=== PATIENT | male | born 1935 | race Caucasian/White ===

== ENCOUNTER → 2020-01-10 10:56 | Outpatient (BNVA) | payer MEDICARE, OTHER, SELFPAY | PROVIDERS: PCP Internal Medicine; Referring Provider Internal Medicine; Visit Provider Internal Medicine Cardiovascular Disease | DX: I48.92 Unspecified atrial flutter (principal); I10 Essential (primary) hypertension; E78.5 Hyperlipidemia, unspecified; Z79.899 Other long term (current) drug therapy; Z79.01 Long term (current) use of anticoagulants; Z95.0 Presence of cardiac pacemaker | CPT/HCPCS: 93005; 99213 ==

== ENCOUNTER 2020-05-26 09:46 | Outpatient (REF) | payer MEDICARE, OTHER, SELFPAY ==
[2020-05-26 11:02] LABS: MANUAL DIFF FLAG NO
[2020-05-26 11:13] LABS: Basophils Percent Auto 0.3 % (0-2); Eosinophils Absolute Auto 0.2 X10*3/uL (0.0-0.4); Eosinophils Percent Auto 2.2 % (0-4); Hematocrit 40.3 % (42-52); Hemoglobin 13.4 g/dl (14.0-18.0); Imm Gran Abs Auto 0.07 X10*3/uL (0.00-0.03); Imm Gran Pct Auto 0.7 % (0.0-0.4); Lymphocytes Absolute Auto 1.7 X10*3/uL (1.2-4.9); Lymphocytes Percent Auto 18.3 % (20-40); Mean Corpuscular HGB Conc 33.3 g/dl (31.0-36.0); Mean Corpuscular Hemoglobin 29.1 pg (27.0-33.0); Mean Corpuscular Volume 87.4 fL (80-98); Mean Platelet Volume 10.7 fL (9.4-12.4); Monocytes Absolute Auto 0.4 X10*3/uL (0.1-1.2); Monocytes Percent Auto 4.7 % (2-11); Neutrophils Absolute Auto 6.9 X10*3/uL (2.0-8.3); Neutrophils Percent Auto 73.8 % (45-73); Platelet Count 228 X10*3/uL (160-400); Red Blood Count 4.61 X10*6/uL (4.60-5.80); Red Cell Distribution Width 14.3 % (11.0-16.0); White Blood Count 9.4 X10*3/uL (4.8-10.8)
[2020-05-26 11:41] LABS: Microalbum/Creatinine Ratio Ur 19.4 ug/mg cr
[2020-05-26 11:45] LABS: Estimated Average Glucose 192 mg/dL; Hemoglobin A1c % 8.3 %
[2020-05-26 11:52] LABS: Alanine Aminotransferase 34 U/L (0-40); Albumin Level 4.5 g/dL (3.5-5.0); Alkaline Phosphatase 116 U/L (39-117); Anion Gap 16 (12-20); Aspartate Amino Transferase 36 U/L (5-37); Bilirubin Total 0.8 mg/dL (0.0-1.0); Blood Urea Nitrogen 22 mg/dL (9-16); Calcium 9.3 mg/dL (8.4-10.2); Carbon Dioxide 29 mmol/L (22-29); Chloride 100 mmol/L (96-108); Cholesterol 171 mg/dL; Estimated Glomerular Filt Rate 41; Free T4 (Free Thyroxine) 0.99 ng/dL (0.71-1.85); Glucose Fasting 202 mg/dL (60-99); HDL Cholesterol 50 mg/dL; LDL Cholesterol Calculated 93 mg/dl; Potassium 4.5 mmol/L (3.3-5.1); Sodium 140 mmol/L (135-145); Thyroid Stimulating Hormone 6.89 uIU/mL (0.32-4.0); Total Protein 7.3 g/dL (6.5-8.0); Triglycerides 143 mg/dL
== END 2020-05-26 09:47 | disposition home or self-care (01) ==
LOC: HO.HMGCLDS 09:46
PROVIDERS: PCP Internal Medicine; Visit Provider Internal Medicine
DX: E11.22 Type 2 diabetes mellitus with diabetic chronic kidney disease (principal); I12.9 Hypertensive chronic kidney disease with stage 1 through stage 4 chronic kidney disease, or unspecified chronic kidney disease; N18.9 Chronic kidney disease, unspecified; E78.00 Pure hypercholesterolemia, unspecified; E03.9 Hypothyroidism, unspecified
CPT/HCPCS: 36415; 80053; 80061; 82043; 83036; 84439; 84443; 85025

== ENCOUNTER → 2020-06-26 11:13 | Outpatient (BNVA) | payer MEDICARE, OTHER, SELFPAY | PROVIDERS: PCP Internal Medicine; Visit Provider Internal Medicine Cardiovascular Disease | DX: Z51.81 Encounter for therapeutic drug level monitoring (principal); I10 Essential (primary) hypertension; I48.92 Unspecified atrial flutter | CPT/HCPCS: 99212 ==

== ENCOUNTER 2020-07-04 10:55 | Outpatient (REF) | payer MEDICARE, OTHER, SELFPAY ==
[2020-07-04 14:22] LABS: Estimated Average Glucose 183 mg/dL
[2020-07-04 14:29] LABS: Anion Gap 17 (12-20); Blood Urea Nitrogen 22 mg/dL (9-16); Calcium 8.8 mg/dL (8.4-10.2); Carbon Dioxide 25 mmol/L (22-29); Chloride 101 mmol/L (96-108); Estimated Glomerular Filt Rate 43; Glucose Random 310 mg/dL (60-115); Potassium 4.4 mmol/L (3.3-5.1); Sodium 139 mmol/L (135-145)
[2020-07-04 14:34] LABS: Alanine Aminotransferase 28 U/L (0-40); Albumin Level 4.2 g/dL (3.5-5.0); Alkaline Phosphatase 98 U/L (39-117); Aspartate Amino Transferase 29 U/L (5-37); Bilirubin Direct 0.4 mg/dL (0.0-0.5); Bilirubin Total 0.9 mg/dL (0.0-1.0); Total Protein 6.7 g/dL (6.5-8.0)
[2020-07-04 14:55] LABS: Free T4 (Free Thyroxine) 1.18 ng/dL (0.71-1.85); Thyroid Stimulating Hormone 2.86 uIU/mL (0.32-4.0)
[2020-07-04 14:58] LABS: TSH reflex Free T4 3.36 uIU/mL (0.32-4.0)
== END 2020-07-04 10:56 | disposition home or self-care (01) ==
LOC: HO.HMGCLDS 10:55
PROVIDERS: PCP Internal Medicine; Visit Provider Internal Medicine Cardiovascular Disease
DX: E11.22 Type 2 diabetes mellitus with diabetic chronic kidney disease (principal); I12.9 Hypertensive chronic kidney disease with stage 1 through stage 4 chronic kidney disease, or unspecified chronic kidney disease; N18.9 Chronic kidney disease, unspecified; E03.9 Hypothyroidism, unspecified; Z51.81 Encounter for therapeutic drug level monitoring
CPT/HCPCS: 36415; 80048; 80076; 83036; 84439; 84443

== ENCOUNTER 2020-07-07 12:43 | Outpatient (REF) | payer MEDICARE, OTHER, SELFPAY ==
--- NOTE | 2020-07-07 14:59 | PFT_ITS ---
FLOWS: FEV1 of 91% of predicted at 2.21 L. FVC 87% of predicted at 3.05 L. FEV1 to FVC ratio of 0.72. No bronchodilator response except in small to medium airways. LUNG VOLUMES: Total lung capacity 84% of predicted at 5.62 L. Residual volume 98% of predicted at 2.61 L. Slow vital capacity 74% of predicted at 3.01 L. Expiratory reserve volume 49% of predicted at 0.48 L. Diffusion capacity is mildly decreased, diffusion capacity corrects to normal after adjustment for alveolar ventilation. IMPRESSION: No obstructive or restrictive ventilatory defect. No bronchodilator response except in small to medium airways. Decreased expiratory reserve volume suggests extrathoracic restriction likely secondary to abdominal obesity. MD MIKEL Vivas/MODL / [id number]
== END 2020-07-07 12:44 | disposition home or self-care (01) ==
LOC: HO.RESP 12:43
PROVIDERS: PCP Internal Medicine; Visit Provider Internal Medicine Cardiovascular Disease
DX: Z87.891 Personal history of nicotine dependence (principal); Z51.81 Encounter for therapeutic drug level monitoring
CPT/HCPCS: 94060; 94727; 94729

== ENCOUNTER → 2020-12-12 13:40 | Outpatient (BNVA) | payer MEDICARE, OTHER, SELFPAY | PROVIDERS: PCP Internal Medicine; Referring Provider Internal Medicine; Visit Provider Nurse Practitioner Family | DX: Z45.018 Encounter for adjustment and management of other part of cardiac pacemaker (principal); I48.92 Unspecified atrial flutter; I10 Essential (primary) hypertension | CPT/HCPCS: 93005; 99212 ==

== ENCOUNTER 2021-04-18 09:06 | Outpatient (REF) | payer MEDICARE, OTHER, SELFPAY ==
[2021-04-18 11:30] LABS: MANUAL DIFF FLAG NO
[2021-04-18 11:32] LABS: Appearance Urine CLEAR; Color Urine YELLOW; Glucose Urine UA NEG (NEG); Leukocyte Esterase Urine NEG (NEG); Nitrite Urine NEG (NEG); PH 5.5 (5.0-8.0); Specific Gravity - Urine >= 1.030 (1.005-1.025); Urine Blood NEG (NEG); Urine Ketones NEG (NEG); Urine Protein TRACE MG/DL (NEG-TRACE)
[2021-04-18 11:40] LABS: Estimated Average Glucose 212 mg/dL
[2021-04-18 11:41] LABS: Basophils Percent Auto 0.4 % (0-2); Eosinophils Absolute Auto 0.2 X10*3/uL (0.0-0.4); Eosinophils Percent Auto 1.8 % (0-4); Hematocrit 39.9 % (42.0-52.0); Hemoglobin 12.9 g/dl (14.0-18.0); Imm Gran Abs Auto 0.05 X10*3/uL (0.00-0.03); Imm Gran Pct Auto 0.6 % (0.0-0.4); Lymphocytes Absolute Auto 1.4 X10*3/uL (1.2-4.9); Lymphocytes Percent Auto 16.7 % (20-40); Mean Corpuscular HGB Conc 32.3 g/dl (31.0-36.0); Mean Corpuscular Hemoglobin 28.4 pg (27.0-33.0); Mean Corpuscular Volume 87.7 fL (80.0-98.0); Mean Platelet Volume 10.7 fL (9.4-12.4); Monocytes Absolute Auto 0.4 X10*3/uL (0.1-1.2); Monocytes Percent Auto 4.8 % (2-11); Neutrophils Absolute Auto 6.3 x10*3/uL (2.0-8.3); Neutrophils Percent Auto 75.7 % (45-73); Platelet Count 203 X10*3/uL (160-400); Red Blood Count 4.55 X10*6/uL (4.60-5.80); Red Cell Distribution Width 14.7 % (11.0-16.0); White Blood Count 8.3 X10*3/uL (4.8-10.8)
[2021-04-18 11:58] LABS: Creatinine Urine 230.39 mg/dL; Microalbum/Creatinine Ratio Ur 22.5 ug/mg cr
[2021-04-18 12:11] LABS: Alanine Aminotransferase 27 U/L (0-40); Albumin Level 4.2 g/dL (3.5-5.0); Alkaline Phosphatase 109 U/L (39-117); Anion Gap 16 (12-20); Aspartate Amino Transferase 32 U/L (5-37); Bilirubin Total 0.9 mg/dL (0.0-1.0); Blood Urea Nitrogen 15 mg/dL (9-16); Calcium 9.2 mg/dL (8.4-10.2); Carbon Dioxide 26 mmol/L (22-29); Chloride 103 mmol/L (96-108); Cholesterol 155 mg/dL; Estimated Glomerular Filt Rate 43; Glucose Fasting 217 mg/dL (60-99); HDL Cholesterol 42 mg/dL; LDL Cholesterol Calculated 84 mg/dl; Potassium 4.5 mmol/L (3.3-5.1); Sodium 140 mmol/L (135-145); Triglycerides 146 mg/dL
[2021-04-18 12:12] LABS: Prostate Specific Antigen Scr 1.11 ng/mL (<0.05-4.0)
== END 2021-04-18 09:07 | disposition home or self-care (01) ==
LOC: HO.HMGCLDS 09:06
PROVIDERS: Visit Provider Internal Medicine
DX: E11.22 Type 2 diabetes mellitus with diabetic chronic kidney disease (principal); N18.9 Chronic kidney disease, unspecified; I25.10 Atherosclerotic heart disease of native coronary artery without angina pectoris; Z12.5 Encounter for screening for malignant neoplasm of prostate; Z95.0 Presence of cardiac pacemaker
CPT/HCPCS: 36415; 80053; 80061; 81003; 82043; 83036; 84153; 85025

== ENCOUNTER → 2021-05-28 12:43 | Outpatient (BNVA) | payer MEDICARE, OTHER, SELFPAY | PROVIDERS: PCP Internal Medicine; Referring Provider Internal Medicine; Visit Provider Nurse Practitioner Family | DX: Z45.018 Encounter for adjustment and management of other part of cardiac pacemaker (principal); I48.92 Unspecified atrial flutter; I10 Essential (primary) hypertension | CPT/HCPCS: 93005; 99212 ==

== ENCOUNTER 2021-06-05 10:25 | Outpatient (REF) | payer MEDICARE, OTHER, SELFPAY ==
--- NOTE | ~2021-06-05 | XR_ITS ---
EXAMINATION: XR CHEST CLINICAL INFORMATION: Other long-term drug therapy COMPARISON: Previous chest x-ray most recent May 2019 TECHNIQUE: 2 views of the chest were obtained. FINDINGS: The cardiac silhouette does not appear enlarged. There is increased density over the heart similar to prior exam likely related to prominent fat at the esophageal hiatus. Hilar and mediastinal contours are otherwise unremarkable. There is a left dual chamber pacemaker that appears unchanged. There is chronic scarring or subsegmental atelectasis of the left lung base. The lungs are otherwise clear. There is no pleural effusion or pneumothorax. Bony structures are unremarkable. XR/XR chest 2V IMPRESSION: Stable chest x-ray. No evidence for acute disease in the chest.
[2021-06-05 11:50] LABS: Estimated Average Glucose 183 mg/dL
[2021-06-05 12:09] LABS: TSH reflex Free T4 4.42 uIU/mL (0.32-4.0)
[2021-06-05 12:12] LABS: Alanine Aminotransferase 31 U/L (0-40); Albumin Level 4.1 g/dL (3.5-5.0); Alkaline Phosphatase 106 U/L (39-117); Anion Gap 12 (12-20); Aspartate Amino Transferase 31 U/L (5-37); Bilirubin Total 0.7 mg/dL (0.0-1.0); Blood Urea Nitrogen 18 mg/dL (9-16); Calcium 9.2 mg/dL (8.4-10.2); Carbon Dioxide 26 mmol/L (22-29); Chloride 106 mmol/L (96-108); Estimated Glomerular Filt Rate 51; Free T4 (Free Thyroxine) 1.07 ng/dL (0.71-1.85); Glucose Random 134 mg/dL (60-115); Potassium 4.3 mmol/L (3.3-5.1); Sodium 140 mmol/L (135-145); Thyroid Stimulating Hormone 4.73 uIU/mL (0.32-4.0); Total Protein 6.7 g/dL (6.5-8.0)
== END 2021-06-05 10:26 | disposition home or self-care (01) ==
LOC: HO.HMGCLDS 10:25
PROVIDERS: PCP Internal Medicine; Visit Provider Nurse Practitioner Family
DX: I48.92 Unspecified atrial flutter (principal); I12.9 Hypertensive chronic kidney disease with stage 1 through stage 4 chronic kidney disease, or unspecified chronic kidney disease; E11.22 Type 2 diabetes mellitus with diabetic chronic kidney disease; N18.9 Chronic kidney disease, unspecified; E03.9 Hypothyroidism, unspecified; Z79.899 Other long term (current) drug therapy
CPT/HCPCS: 36415; 71046; 80053; 83036; 84439; 84443

== ENCOUNTER 2021-10-15 09:52 | Outpatient (REF) | payer MEDICARE, OTHER, SELFPAY ==
[2021-10-15 11:56] LABS: Alanine Aminotransferase 32 U/L (0-40); Albumin Level 4.2 g/dL (3.5-5.0); Alkaline Phosphatase 125 U/L (39-117); Anion Gap 16 (12-20); Aspartate Amino Transferase 27 U/L (5-37); Bilirubin Total 0.8 mg/dL (0.0-1.0); Blood Urea Nitrogen 16 mg/dL (9-16); Calcium 8.9 mg/dL (8.4-10.2); Carbon Dioxide 25 mmol/L (22-29); Chloride 104 mmol/L (96-108); Estimated Glomerular Filt Rate 47; Glucose Random 213 mg/dL (60-115); Sodium 141 mmol/L (135-145); Total Protein 6.8 g/dL (6.5-8.0)
[2021-10-15 12:05] LABS: Thyroid Stimulating Hormone 5.39 uIU/mL (0.32-4.0)
[2021-10-15 12:27] LABS: Estimated Average Glucose 186 mg/dL; Hemoglobin A1c % 8.1 %
== END 2021-10-15 09:53 | disposition home or self-care (01) ==
LOC: HO.HMGCLDS 09:52
PROVIDERS: PCP Internal Medicine; Visit Provider Internal Medicine
DX: E03.9 Hypothyroidism, unspecified (principal); I12.9 Hypertensive chronic kidney disease with stage 1 through stage 4 chronic kidney disease, or unspecified chronic kidney disease; N18.9 Chronic kidney disease, unspecified; E11.22 Type 2 diabetes mellitus with diabetic chronic kidney disease; I25.10 Atherosclerotic heart disease of native coronary artery without angina pectoris
CPT/HCPCS: 36415; 80053; 83036; 84443

== ENCOUNTER → 2021-11-26 12:39 | Outpatient (BNVA) | payer MEDICARE, OTHER, SELFPAY | PROVIDERS: PCP Internal Medicine; Referring Provider Internal Medicine; Visit Provider Internal Medicine Cardiovascular Disease | DX: Z45.018 Encounter for adjustment and management of other part of cardiac pacemaker (principal); I48.0 Paroxysmal atrial fibrillation; I48.92 Unspecified atrial flutter; I10 Essential (primary) hypertension | CPT/HCPCS: 93005; 99212 ==

== ENCOUNTER 2022-03-26 10:58 | Outpatient (REF) | payer MEDICARE, OTHER, SELFPAY ==
[2022-03-26 14:11] LABS: MANUAL DIFF FLAG NO
[2022-03-26 14:27] LABS: Basophils Percent Auto 0.3 % (0-2); Eosinophils Absolute Auto 0.1 X10*3/uL (0.0-0.4); Eosinophils Percent Auto 1.7 % (0-4); Hematocrit 39.1 % (42.0-52.0); Imm Gran Abs Auto 0.04 X10*3/uL (0.00-0.03); Imm Gran Pct Auto 0.6 % (0.0-0.4); Lymphocytes Absolute Auto 1.4 X10*3/uL (1.2-4.9); Mean Corpuscular HGB Conc 33.2 g/dl (31.0-36.0); Mean Corpuscular Hemoglobin 29.1 pg (27.0-33.0); Mean Corpuscular Volume 87.7 fL (80.0-98.0); Mean Platelet Volume 10.4 fL (9.4-12.4); Monocytes Absolute Auto 0.4 X10*3/uL (0.1-1.2); Monocytes Percent Auto 5.1 % (2-11); Neutrophils Absolute Auto 5.1 x10*3/uL (2.0-8.3); Neutrophils Percent Auto 72.3 % (45-73); Platelet Count 184 X10*3/uL (160-400); Red Blood Count 4.46 X10*6/uL (4.60-5.80); Red Cell Distribution Width 14.7 % (11.0-16.0)
[2022-03-26 15:00] LABS: Alanine Aminotransferase 24 U/L (0-40); Albumin Level 4.2 g/dL (3.5-5.0); Alkaline Phosphatase 98 U/L (39-117); Anion Gap 13 (12-20); Aspartate Amino Transferase 29 U/L (5-37); Bilirubin Total 0.9 mg/dL (0.0-1.0); Blood Urea Nitrogen 18 mg/dL (9-16); Carbon Dioxide 27 mmol/L (22-29); Chloride 104 mmol/L (96-108); Estimated Glomerular Filt Rate 49; Glucose Random 191 mg/dL (60-115); Potassium 3.9 mmol/L (3.3-5.1); Sodium 140 mmol/L (135-145); Total Protein 6.7 g/dL (6.5-8.0)
[2022-03-26 15:18] LABS: Free T4 (Free Thyroxine) 1.37 ng/dL (0.71-1.85); Thyroid Stimulating Hormone 3.48 uIU/mL (0.32-4.0)
[2022-03-26 15:30] LABS: Creatinine Urine 144.81 mg/dL; Microalbum/Creatinine Ratio Ur 9.6 ug/mg cr
[2022-03-26 15:36] LABS: Estimated Average Glucose 177 mg/dL; Hemoglobin A1c % 7.8 %
== END 2022-03-26 10:59 | disposition home or self-care (01) ==
LOC: HO.HMGCLDS 10:58
PROVIDERS: PCP Internal Medicine; Visit Provider Internal Medicine
DX: I48.0 Paroxysmal atrial fibrillation (principal); E03.9 Hypothyroidism, unspecified; E11.9 Type 2 diabetes mellitus without complications
CPT/HCPCS: 36415; 80053; 82043; 83036; 84439; 84443; 85025

== ENCOUNTER → 2022-05-20 09:27 | Outpatient (BNVA) | payer MEDICARE, OTHER, SELFPAY | PROVIDERS: PCP Internal Medicine; Referring Provider Internal Medicine; Visit Provider Internal Medicine Cardiovascular Disease | DX: I48.92 Unspecified atrial flutter (principal); I48.0 Paroxysmal atrial fibrillation; I10 Essential (primary) hypertension; Z95.0 Presence of cardiac pacemaker; Z79.899 Other long term (current) drug therapy | CPT/HCPCS: 93005; 99212 ==

== ENCOUNTER 2022-07-04 12:04 | Outpatient (REF) | payer MEDICARE, OTHER, SELFPAY ==
[2022-07-04 13:35] LABS: MANUAL DIFF FLAG NO
[2022-07-04 13:36] LABS: Basophils Percent Auto 0.3 % (0-2); Eosinophils Absolute Auto 0.2 X10*3/uL (0.0-0.4); Eosinophils Percent Auto 2.1 % (0-4); Hematocrit 37.8 % (42.0-52.0); Hemoglobin 12.6 g/dl (14.0-18.0); Imm Gran Abs Auto 0.04 X10*3/uL (0.00-0.03); Imm Gran Pct Auto 0.6 % (0.0-0.4); Lymphocytes Absolute Auto 1.2 X10*3/uL (1.2-4.9); Lymphocytes Percent Auto 17.6 % (20-40); Mean Corpuscular HGB Conc 33.3 g/dl (31.0-36.0); Mean Corpuscular Hemoglobin 29.4 pg (27.0-33.0); Mean Corpuscular Volume 88.3 fL (80.0-98.0); Mean Platelet Volume 10.3 fL (9.4-12.4); Monocytes Absolute Auto 0.3 X10*3/uL (0.1-1.2); Monocytes Percent Auto 4.9 % (2-11); Neutrophils Absolute Auto 5.2 x10*3/uL (2.0-8.3); Neutrophils Percent Auto 74.5 % (45-73); Platelet Count 188 X10*3/uL (160-400); Red Blood Count 4.28 X10*6/uL (4.60-5.80); Red Cell Distribution Width 14.5 % (11.0-16.0)
[2022-07-04 13:55] LABS: Estimated Average Glucose 169 mg/dL; Hemoglobin A1c % 7.5 %
[2022-07-04 13:58] LABS: Alanine Aminotransferase 18 U/L (0-40); Alkaline Phosphatase 103 U/L (39-117); Anion Gap 12 (12-20); Aspartate Amino Transferase 22 U/L (5-37); Bilirubin Total 0.9 mg/dL (0.0-1.0); Blood Urea Nitrogen 15 mg/dL (9-16); C Reactive Protein 1.05 mg/dL (< or = 0.50); Calcium 8.9 mg/dL (8.4-10.2); Carbon Dioxide 29 mmol/L (22-29); Chloride 104 mmol/L (96-108); Estimated Glomerular Filt Rate 51; Glucose Random 199 mg/dL (60-115); Sodium 141 mmol/L (135-145); Total Protein 6.3 g/dL (6.5-8.0)
[2022-07-04 14:24] LABS: Thyroid Stimulating Hormone 1.32 uIU/mL (0.32-4.0); Vitamin B12 518 pg/mL (200-900)
== END 2022-07-04 12:05 | disposition home or self-care (01) ==
LOC: HO.10HDL 12:04
PROVIDERS: Visit Provider Internal Medicine
DX: E11.22 Type 2 diabetes mellitus with diabetic chronic kidney disease (principal); I48.91 Unspecified atrial fibrillation; N18.9 Chronic kidney disease, unspecified; E03.9 Hypothyroidism, unspecified
CPT/HCPCS: 36415; 80053; 82607; 83036; 84439; 84443; 85025; 86140

== ENCOUNTER 2022-09-02 12:42 | Outpatient (REF) | payer MEDICARE, OTHER, SELFPAY ==
[2022-09-02 14:42] LABS: Syphilis Screen Nonreactive (Nonreactive)
[2022-09-02 14:45] LABS: Vitamin B12 412 pg/mL (200-900)
== END 2022-09-02 12:43 | disposition home or self-care (01) ==
LOC: HO.LAB 12:42
PROVIDERS: PCP Internal Medicine; Visit Provider Psychiatry & Neurology Neurology
DX: F03.90 Unspecified dementia, unspecified severity, without behavioral disturbance, psychotic disturbance, mood disturbance, and anxiety (principal)
CPT/HCPCS: 36415; 82607; 86780

== ENCOUNTER → 2022-10-10 12:33 | Outpatient (BNVA) | payer MEDICARE, OTHER, SELFPAY | PROVIDERS: PCP Internal Medicine; Visit Provider Internal Medicine Cardiovascular Disease ==

== ENCOUNTER 2022-11-25 09:03 | Outpatient (AMB) | payer MEDICARE, OTHER, SELFPAY ==
[2022-11-25 09:16] VITALS: BP 128/66; PULSE 87; BMI 31.9
--- NOTE | 2022-11-25 09:16 | MHC.OFFVIS ---
Intake Vital Signs 11/25/22 09:16 Height 5 ft 8 in Weight 209 lb 14.081 oz BMI 31.9 BP 128/66 Blood Pressure Location Lt brachial Position Sitting Pulse 87 Pulse Source Monitor Intake Visit Reasons: 6 months f/u Intake Note: 6 month follow with EKG. 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: No Accompanied by: Self / Same As Patient Allergies No Known Allergies [No Known Allergies*] Allergy (Verified 11/25/22 09:19) Medication List - Last Reconciled 11/25/22 by Memo Kaiser MD amiodarone 200 mg PO DAILY apixaban 5 mg PO BID atorvastatin 20 mg PO DAILY hydrochlorothiazide 25 mg PO DAILY 90 days insulin glargine (Lantus Solostar U-100 Insulin) 25 units subcut BID levothyroxine 75 mcg PO DAILY omeprazole 20 mg PO DAILY semaglutide 7 mg PO .weekly sertraline 50 mg PO DAILY HPI HPI Comments History of Present Illness Details 87-year-old gentleman who was seen at [facility] with syncope. 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 Subsequent to that he was admitted with sharp chest and abdominal pain which was thought to be noncardiac. He underwent an exercise stress test as outpatient which is normal. He was complaining of fatigue and shortness of breath since the pacemaker was placed. He saw Dr. Melendez in the office and was found to have atrial flutter on the EKG. I saw him in the office and we discussed about MAYITO cardioversion. Interestingly his EKG in the office showed sinus rhythm with first-degree AV block. Old EKG from Dr. Melendez's office was reviewed which showed atrial flutter. He was started on amiodarone for rhythm control strategy because he did not tolerate atrial flutter. He is here for follow-up today. He has been started on Ozempic by Dr. Melendez and has lost weight. He is feeling better. He is denying chest pain or significant shortness of breath. EKG showing sinus rhythm at this stage. No bleeding concerns. 11/25/22: He returns for follow-up. Has been doing well. Yesterday he was pulling some weeds. Today he woke up and was trying to get out of bed and felt left-sided chest pain. This is clearly reproducible over the ribs and is musculoskeletal. He has been taking medications otherwise regularly. He is on Ozempic and has been losing weight. [facility] Medical History Atrial flutter GI bleed Hyperlipidemia Hypertension Hypothyroidism PAF (paroxysmal atrial fibrillation) PTSD (post-traumatic stress disorder) Type 2 diabetes mellitus Surgical History History of cardiac pacemaker (~09/24/18) History of appendectomy Family History Other Adopted Social History Alcohol intake: never Patient Tobacco Use Status: Never used Tobacco Review of Systems Const Denies weakness ENT Denies dizziness Card Denies chest pain, Denies chest pain with activity, Denies syncope, Denies rapid heart rate, Denies pedal edema, Denies edema, Denies leg edema, Denies lightheadedness, Denies palpitations, Denies dyspnea, Denies dyspnea on exertion and Denies orthopnea Resp Denies cough, Denies dyspnea and Denies dyspnea on exertion GI Denies hematochezia and Denies change in stool character Musc Denies abnormal gait, Denies muscle cramps, Denies muscle weakness, Denies numbness, Denies radiating pain into limb and Denies tingling Neuro Denies abnormal gait, Denies dizziness, Denies syncope, Denies numbness, Denies tingling and Denies weakness Endo Denies palpitations Physical Exam Vital Signs: Last Vital Signs Pulse 87 11/25/22 09:16 BP 128/66 11/25/22 09:16 BMI result Body Mass Index 31.9 GENERAL APPEARANCE: in no acute distress, well developed, well nourished. NECK/THYROID: no carotid bruit, no jugular venous distention. SKIN: no rashes. HEART: no murmurs, regular rate and rhythm, S1, S2 normal. LUNGS: clear to auscultation bilaterally. ABDOMEN: normal, bowel sounds present, soft, nontender, nondistended. EXTREMITIES: no edema. PERIPHERAL PULSES: equal. NEUROLOGIC: nonfocal, alert and oriented. PSYCH: mood/affect full range. Office Procedures EKG Details: AV dual paced rhythm with prolonged AV conduction and PVCs, QTc 500 msec. [id number], Complete Assessment & Plan Assessment & Plan (1) On amiodarone therapy: Code(s): Z79.899 - Other computer terminal operator (current) drug therapy (2) Pacemaker: Code(s): Z95.0 - Presence of cardiac pacemaker (3) Atrial flutter: Code(s): I48.92 - Unspecified atrial flutter (4) Hypertension: Code(s): I10 - Essential (primary) hypertension Plan Pleasant 87-year-old gentleman who is here for follow-up. He has history of atrial flutter and has been on amiodarone. He also had pacemaker placement for syncope and AV block in the past. Has been doing well and has been on Ozempic with the good weight loss at this point. He is on apixaban for anticoagulation. Blood pressure control is good. We will repeat thyroid profile and liver panel today. He will continue medications as before. He will see us back in 4 months. Thank you for allowing me to participate in the care of your patient. Please feel free to contact me if you have any questions. Orders: Orders Liver Panel Today Z79.899 - Other computer terminal operator (current) drug therapy TSH reflex Free T4 Today Z79.899 - Other computer terminal operator (current) drug therapy Coding Level of Care Code Est Pt Level 4 (82751) Diagnoses On amiodarone therapy Z79.899 Pacemaker Z95.0 Atrial flutter I48.92 Hypertension I10 CPT Codes EKG - CPT: 20869-[id number], Complete ([id number])
== END 2022-11-25 09:45 | disposition home or self-care (01) ==
PROVIDERS: Visit Provider Internal Medicine Cardiovascular Disease
DX: Z79.899 Other long term (current) drug therapy (principal); Z95.0 Presence of cardiac pacemaker; I48.92 Unspecified atrial flutter; I10 Essential (primary) hypertension
CPT/HCPCS: 93010; 99214

== ENCOUNTER 2022-11-25 09:03 | Outpatient (REF) | payer MEDICARE, OTHER, SELFPAY ==
[2022-11-25 11:18] LABS: Alanine Aminotransferase 11 U/L (0-40); Albumin Level 4.1 g/dL (3.5-5.0); Alkaline Phosphatase 96 U/L (39-117); Aspartate Amino Transferase 17 U/L (5-37); Bilirubin Direct 0.4 mg/dL (0.0-0.5); Bilirubin Total 0.8 mg/dL (0.0-1.0); Total Protein 7.3 g/dL (6.5-8.0)
[2022-11-25 11:25] LABS: TSH reflex Free T4 4.73 uIU/mL (0.32-4.0)
[2022-11-25 12:00] LABS: Free T4 (Free Thyroxine) 0.89 ng/dL (0.71-1.85)
== END 2022-11-25 09:04 | disposition home or self-care (01) ==
LOC: HO.LAB 09:03
PROVIDERS: Visit Provider Internal Medicine Cardiovascular Disease
DX: I48.92 Unspecified atrial flutter (principal); I10 Essential (primary) hypertension; Z95.0 Presence of cardiac pacemaker; Z79.899 Other long term (current) drug therapy
CPT/HCPCS: 36415; 80076; 84439; 84443; 93005; 99212

== ENCOUNTER 2022-12-11 10:18 | Outpatient (REF) | payer MEDICARE, OTHER, SELFPAY ==
--- NOTE | ~2022-12-11 | XR_ITS ---
EXAMINATION: XR HIP, RIGHT CLINICAL INFORMATION: Right hip pain. COMPARISON: None available. TECHNIQUE: Two views of the right hip. FINDINGS: No acute fracture or dislocation. Mild right hip joint space narrowing with small marginal osteophytes. No osseous erosion. No evidence of avascular necrosis. Atherosclerotic calcifications. XR/XR hip RT min 2V IMPRESSION: Mild right hip osteoarthritis.
== END 2022-12-11 10:19 | disposition home or self-care (01) ==
LOC: HO.XRAY 10:18
PROVIDERS: PCP Internal Medicine; Visit Provider Internal Medicine
DX: M25.551 Pain in right hip (principal)
CPT/HCPCS: 73502

== ENCOUNTER 2022-12-17 18:31 | Emergency (ER) | payer OTHER, SELFPAY ==
--- NOTE | ~2022-12-17 | CT_ITS ---
EXAMINATION: CT CHEST, ABDOMEN AND PELVIS WITHOUT CONTRAST CLINICAL INFORMATION: Fall. COMPARISON: CTA chest dated 10/22/[address] abdomen/pelvis dated 05/14/2012. Most recent chest radiograph dated 06/05/2021. TECHNIQUE: Contiguous axial thin section helical images of the chest, abdomen and pelvis were performed without IV contrast. The data set was reformatted in the coronal and sagittal planes and reviewed on an independent workstation. This CT examination was performed using dose optimization techniques as appropriate, variously including the following: *Automated exposure control *Adjustment of mA and/or kV according to patient size (this includes techniques or standardized protocols for targeted exams where dose is matched to indication/reason for exam; i.e. extremities or head) *Use of iterative reconstruction technique DLP: 1067 mGy-cm. FINDINGS: LUNGS: Within the right lung apex adjacent to the superior aspect of the mediastinum there is an irregular soft tissue mass measuring up to 3.4 x 2.7 x 3.1 cm. This demonstrates mildly spiculated margins and is concerning for a neoplastic lesion. There are multiple additional bilateral pulmonary nodules measuring up to 0.2-0.3 cm, new when compared to the prior examination. No large, confluent airspace consolidation. The central airways are patent. PLEURA: No pleural effusion or pneumothorax. No pleural mass or thickening. MEDIASTINUM: No cardiomegaly. No significant pericardial effusion. No thoracic aortic dilatation. Right-sided precarinal lymph node measuring up to 0.9 x 1.1 cm (axial image 23/63), increased in size when compared to the prior CT where it measured up to 0.7 x 0.7 cm. There appears to be right hilar lymphadenopathy superior to the right pulmonary artery, new when compared to the prior examination. Evaluation somewhat limited without contrast and exact measurements cannot be obtained. Left chest wall pacer with its leads in the right heart. Coronary artery calcifications are present. CHEST WALL/AXILLA: No lymphadenopathy. THYROID: Unremarkable LIVER, GALLBLADDER, AND BILIARY TREE: Normal size, shape, and attenuation. No focal hepatic lesion. No intra or extrahepatic biliary ductal dilatation. The gallbladder is unremarkable with no evidence of radiopaque gallstones, gallbladder wall thickening, or obvious pericholecystic inflammatory changes. PANCREAS: Atrophic and fatty replaced. SPLEEN: Mildly enlarged measuring up to 14.4 cm, new when compared to the prior examination. ADRENAL GLANDS: Unremarkable. KIDNEYS AND URETERS: Normal size, shape, and attenuation. No hydronephrosis, hydroureter, or calculi. No perinephric stranding. BLADDER: Unremarkable. GASTROINTESTINAL TRACT: Sigmoid diverticulosis without evidence of acute articular disease. No bowel wall thickening or inflammatory change. No small or large bowel obstruction. The appendix is not well seen, however, no right lower quadrant contour change. PERITONEAL CAVITY: No intra-abdominal free air, free fluid, mass, or organized fluid collection. ABDOMINAL WALL: Small, fat-containing periumbilical hernia. No associated bowel loops or inflammatory change. LYMPH NODES: No significant lymphadenopathy. VASCULAR: No abdominal aortic dilatation. Scattered atherosclerotic calcifications. The IVC is unremarkable. PELVIC VISCERA: Mild prostatomegaly. OSSEOUS STRUCTURES: No lytic or blastic osseous lesion. CT/CT abdomen pelvis wo IV con IMPRESSION: 1. Within the right lung apex adjacent to the superior aspect of the mediastinum there is an irregular soft tissue mass measuring up to 3.4 cm. This demonstrates mildly spiculated margins and is concerning for a neoplastic lesion. Multiple additional bilateral pulmonary nodules measuring up to 0.2-0.3 cm. No large, confluent airspace consolidation. 2. Right-sided precarinal lymph node, increased in size when compared to the prior examination where it measured up to 0.7 cm. Probable right hilar lymphadenopathy, new when compared to the prior examination. Evaluation somewhat limited without contrast. Findings are concerning with metastatic spread of disease. 3. Mild splenomegaly, new when compared to the prior examination. 4. No intra-abdominal mass, lymphadenopathy, or ascites. 5. Diverticulosis without evidence of acute diverticulitis. No small or large bowel obstruction. This critical result was discussed with SONG Monaco at 10:08 PM on 12/17/2022 and it was ascertained that the content and urgency of the report was understood at the time of direct communication.
--- NOTE | ~2022-12-17 | CT_ITS ---
EXAMINATION: CT HEAD WITHOUT CONTRAST CLINICAL INFORMATION: Fall. COMPARISON: CT head from 09/22/2018. TECHNIQUE: Contiguous axial imaging was performed from the skull base to vertex without intravenous administration of contrast. This CT examination was performed using dose optimization techniques as appropriate, variously including the following: *Automated exposure control. *Adjustment of mA and/or kV according to patient size (this includes techniques or standardized protocols for targeted exams where dose is matched to indication/reason for exam; i.e. extremities or head). *Use of iterative reconstruction technique. DLP: 1200 mGy-cm FINDINGS: There is no evidence of acute intracranial hemorrhage or edematous territorial infarction. Michel-white matter differentiation is preserved. A few foci of hypoattenuation in the periventricular and deep white matter are consistent with mild microangiopathy. Proportional prominence of the ventricles and sulcal spaces without evidence of obstructive hydrocephalus. No abnormal mass effect or midline shift. No extra-axial fluid collections. Small subgaleal hematoma along the right posterior vertex, measuring up to 0.3 cm in depth. No associated acute osseous abnormalities. Mild mucosal thickening of the paranasal sinuses. Moderate leftward nasal septal deviation with spurring. The mastoid air cells and middle ear cavities are clear. Mild to moderate degenerative arthropathy of the temporomandibular joints. Bilateral lens extractions. CT/CT head/brain wo IV con IMPRESSION: 1. No evidence of acute intracranial hemorrhage or edematous territorial infarction. 2. Mild underlying microangiopathy and generalized cerebral volume loss. 3. Small right posterior scalp hematoma. No associated osseous abnormalities.
--- NOTE | ~2022-12-17 | CT_ITS ---
EXAMINATION: CT HEAD WITHOUT CONTRAST CT CERVICAL SPINE WITHOUT CONTRAST CLINICAL INFORMATION: Fall. COMPARISON: CT head and cervical spine from 10/02/2018. CT chest from 12/17/2022. TECHNIQUE: Contiguous axial imaging was performed from the skull base to vertex without intravenous administration of contrast. Contiguous axial imaging was performed from the upper chest through the skull base without intravenous administration of contrast. Coronal and sagittal reformats were obtained at the acquisition workstation. This CT examination was performed using dose optimization techniques as appropriate, variously including the following: *Automated exposure control. *Adjustment of mA and/or kV according to patient size (this includes techniques or standardized protocols for targeted exams where dose is matched to indication/reason for exam; i.e. extremities or head). *Use of iterative reconstruction technique. DLP: 1200 mGy-cm FINDINGS: Head: There is no evidence of acute intracranial hemorrhage or edematous territorial infarction. Michel-white matter differentiation is preserved. Scattered and partially confluent hypoattenuation in the periventricular and deep white matter are consistent with moderate microangiopathy. Proportional prominence of the ventricles and sulcal spaces without evidence of obstructive hydrocephalus. No abnormal mass effect or midline shift. No extra-axial fluid collections. Small subgaleal hematoma along the right posterior vertex, measuring up to 0.3 cm in depth. No associated acute osseous abnormalities. Mild mucosal thickening of the paranasal sinuses. Small right-sided mastoid effusion. The left-sided mastoid air cells and middle ear cavity are clear. The patient is edentulous. Cervical Spine: The atlantooccipital and atlantoaxial articulations remain well aligned. Advanced degenerative arthropathy of the atlantodental articulation. Straightening of the normal cervical lordosis. Otherwise, there is anatomic alignment of the vertebral bodies and posterior elements. No evidence of acute fracture or subluxation. The vertebral body heights are maintained. Advanced degenerative disc disease from C5-C7 and T1-T2. Facet and uncovertebral joint arthropathy leads to osseous encroachment on the neural foramina from C2-C6. There is no prevertebral soft tissue swelling. The thyroid gland and remaining cervical soft tissues are within normal limits. Partially visualized 3.3 cm spiculated mass in the medial aspect of the right lung apex abutting the mediastinum (better characterized on concurrent CT of the chest). Left pectoral pacemaker. CT/CT cervical spine wo IV con IMPRESSION: 1. No evidence of acute intracranial hemorrhage or edematous territorial infarction. Moderate underlying microangiopathy and generalized cerebral volume loss. 2. No evidence of acute fracture or traumatic subluxation of the cervical spine. Moderate multilevel degenerative spondyloarthropathy of the cervical spine. 3. Partially visualized 3.3 cm spiculated mass in the medial aspect of the right lung apex abutting the mediastinum (better characterized on concurrent CT of the chest). Findings are suspicious for underlying pulmonary malignancy.
[2022-12-17 18:48] VITALS: BP 130/64; BP 132/58; PULSE 77; PULSE 78; RESP 20; TEMP 36.8; O2SAT 97; O2SAT 98; BMI 31.1
--- NOTE | 2022-12-17 19:18 | ED_ITS ---
HPI - General Adult General Chief complaint: General Medical Stated complaint: NO APPETITE Time Seen by Provider: 12/17/22 19:09 Source: patient Mode of arrival: ambulatory Limitations: no limitations History of Present Illness HPI narrative: 87 yold male with pmh of DM, pacemaker, and dementia presents to the ED for generalized weakness, decrease appettite the past two weeks, weight and recurrent falls ( twice) with most recent being yesterday. patient secondary complain is back pain for the past two weeks due to falls. Patient and family denies any fever, cough, dysuria, hematuria, or altered mental status. Patient denies any chest pain before falling. patient denies any abdominal pain, nausea, vomitting, dysuria, or hematuria. Patient denies any urinary/bowel incontinence Related Data Home Medications Medication Instructions Recorded Confirmed apixaban 5 mg tablet 5 mg PO BID 01/10/20 11/25/22 atorvastatin 20 mg tablet 20 mg PO DAILY 01/10/20 11/25/22 insulin glargine 100 unit/mL (3 25 unit subcut BID 01/10/20 11/25/22 mL) subcutaneous pen (Lantus Solostar U-100 Insulin) omeprazole 20 mg capsule,delayed 20 mg PO DAILY 01/10/20 11/25/22 release levothyroxine 75 mcg tablet 75 mcg PO DAILY 06/26/20 11/25/22 semaglutide 7 mg tablet 7 mg PO .weekly 05/20/22 11/25/22 sertraline 50 mg tablet 50 mg PO DAILY 11/25/22 11/25/22 Previous Rx's Medication Instructions Recorded amiodarone 200 mg tablet 200 mg PO DAILY #90 tabs 10/08/21 hydrochlorothiazide 25 mg tablet 25 mg PO DAILY 90 days #90 tabs 06/18/22 Allergies Allergy/AdvReac Type Severity Reaction Status Date / Time No Known Allergies Allergy Verified 11/25/22 09:19 [No Known Allergies*] Review of Systems 2 Review of Systems: generalized weakness, decreased appetitie, back pain Yes all other systems are reviewed and are negative [facility] Past Medical History Medical History Atrial flutter GI bleed Hyperlipidemia Hypertension Hypothyroidism PAF (paroxysmal atrial fibrillation) PTSD (post-traumatic stress disorder) Type 2 diabetes mellitus Surgical History History of cardiac pacemaker (~09/24/18) History of appendectomy Family History Family History Other Adopted Social History Social History Alcohol intake: never Patient Tobacco Use Status: Never used Tobacco Physical Exam ED Vital Signs: Vital Signs - 24 hr 12/17/22 18:48 12/17/22 20:25 Temperature 98.2 F 98.3 F Pulse Rate 77 68 Respiratory Rate 20 20 Blood Pressure 130/64 137/68 Pulse Oximetry 98 98 Oxygen Delivery Method Room Air Room Air BMI result Body Mass Index 31.1 Const General: cooperative, healthy appearing, comfortable, no acute distress, well developed, alert and awake Orientation/consciousness: oriented to person, oriented to place, oriented to time and patient oriented x3 HENMT Head: Yes normal to inspection, Yes No palpable skull fracture present, Yes normocephalic, Yes atraumatic and No abrasion Eyes General: appearance normal, both eyes and all related structures Neck Neck: Yes normal visual inspection, Yes full ROM, Yes no lymphadenopathy, Yes no meningeal signs, Yes trachea midline, Yes supple, No anterior neck swelling and No tender Chest Chest palpation & inspection: normal inspection of the chest and normal palpation of entire chest wall Resp Effort & Inspection: normal respiratory effort and able to speak in complete sentences Auscultation: clear to auscultation bilaterally Cardio Jugular venous distension: no JVD Heart sounds: S1 normal heart sound present and S2 normal heart sound present GI Inspection: Yes normal to inspection and No abdominal wall ecchymosis Palpation (GI): Soft to palpation, not firm, nontender, no guarding and not rigid General: No CVA tenderness and Yes no CVA tenderness Back/Spine/Pelvis Back: no CVA tenderness, No CVA tenderness and No back tenderness Skin General skin exam: no rashes or lesions noted and elasticity normal Neuro General: oriented to person, oriented to place, oriented to time, patient oriented x3, tone normal, moves all extremities, Normal light touch and pain sensation, no meningeal signs, no focal motor deficits, CN's II-XI intact bilaterally and normal sensation to monofilament Extrem General: Yes normal to inspection and Yes full ROM Psych Appearance: grossly normal, well kempt and not disheveled Medications Administered Discontinued Medications Generic Name Dose Route Start Last Admin Trade Name Jesus PRN Reason Stop Dose Admin Sodium Chloride 1,000 mls @ 999 mls/hr 12/17/22 21:37 12/18/22 00:54 Ns IV 12/17/22 22:37 Infused .Q1H1M STA Infusion Medical Decision Making Medical Decision Making [facility] Narrative: 87-year-old male history of dementia, diabetes, atrial flutter, and pacemaker presents to ED with 2 weeks of generalized weakness, 2 weeks of decreased p.o. appetite, 2 weeks of back pain after falling most recent fall was yesterday. Patient which denies any chest pain, shortness of breath, abdominal pain, urinary/bowel incontinence, altered mental status, coughing, bloody urine, rectal bleeding, fever, or chills. Patient is alert oriented x3 and at baseline as per family members at bedside. Patient will have imaging and labs. 11:09pm: Labs are at baseline. Head CT, cervical spine CT, abdominal CT span came back negative. 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 Patient and family made aware of new diagnosis which may be contributing to patient's symptoms. They were informed they should follow up with our oncologist Dr. Ho. He was given information for Dr. Ho. Patient is not toxic appearing is safe for discharge. Patient lives with daughter and 00:25am: Repeat troponin negative. Patient to be discharged. Patient did not give Urine. He states he will follow up with PCP for Urine test. Differential Diagnosis Differential Diagnoses: The differential diagnosis associated with the presentation includes (Brain bleed, pneumonia, skull fracture, lumbar spine fracture,) Admission/Observation Consideration of admission/observation: Escalation of care including admission/observation considered Lab Data [facility] Lab Attestation statement: I reviewed the patient's lab results. 12/17/22 20:25 12/17/22 20:25 Labs: Lab Results 12/17/22 12/17/22 Range/Units 20:25 23:42 WBC 8.1 (4.8-10.8) X10*3/uL RBC 3.98 L (4.60-5.80) X10*6/uL Hgb 11.2 L (14.0-18.0) g/dl Hct 33.7 L (42.0-52.0) % MCV 84.7 (80.0-98.0) fL MCH 28.1 (27.0-33.0) pg MCHC 33.2 (31.0-36.0) g/dl RDW 13.7 (11.0-16.0) % Plt Count 184 (160-400) X10*3/uL MPV 10.3 (9.4-12.4) fL Immature Gran % (Auto) 1.2 H (0.0-0.4) % Neut % (Auto) 81.1 H (45-73) % Lymph % (Auto) 12.4 L (20-40) % [place] % (Auto) 4.7 (2-11) % Eos % (Auto) 0.5 (0-4) % Baso % (Auto) 0.1 (0-2) % Lymph # (Auto) 1.0 L (1.2-4.9) X10*3/uL [place] # (Auto) 0.4 (0.1-1.2) X10*3/uL Eos # (Auto) 0.0 (0.0-0.4) X10*3/uL Baso # (Auto) 0.0 (0.0-0.2) X10*3/uL Abs Immat Gran (auto) 0.10 H (0.00-0.03) X10*3/uL Absolute Neuts (auto) 6.6 (2.0-8.3) x10*3/uL Absolute Nucleated RBC 0.000 (0.0-0.012) X10*3/uL Nucleated RBC % (auto) 0.0 (0.0-0.2) /100WBC PT 16.8 H (11.1-13.3) SEC INR 1.4 H (0.9-1.1) APTT 28.6 (26.0-36.4) SEC Sodium 135 (135-145) mmol/L Potassium 4.0 (3.3-5.1) mmol/L Chloride 99 (96-108) mmol/L Carbon Dioxide 26 (22-29) mmol/L Anion Gap 14 (12-20) BUN 21 H (9-16) mg/dL Creatinine 1.13 (0.5-1.4) mg/dL Estim Creat Clear Calc 50.9 Estimated GFR > 60 Random Glucose 243 H (60-115) mg/dL Calcium 10.3 H D (8.4-10.2) mg/dL Magnesium 1.8 (1.6-2.6) mg/dL Total Bilirubin 1.0 (0.0-1.0) mg/dL AST 23 (5-37) U/L ALT 20 (0-40) U/L Alkaline Phosphatase 86 (39-117) U/L Total Creatine Kinase 26 L (38-174) U/L Troponin I High Sens 15.4 13.4 (<3.5-35.0) ng/L Total Protein 6.7 (6.5-8.0) g/dL Albumin 3.5 (3.5-5.0) g/dL COVID-19 (WILLIAM) Negative (Negative) COVID-19 Clin Com See Note Independent Interpretation I performed an independent interpretation of an: EKG (Negative STEMI. AV Dual paced rythm) and CT Scan Radiology Impression Discussion of test interpretation with radiology: I have reviewed the radiologist's reading. Discharge Plan Discharge Clinical Impression: Pulmonary mass Patient Disposition: Home, Self-Care Instructions: Soft Tissue Mass (ED) Additional Instructions: Your labs came back at baseline. Your chest CT scan came back concerning for right pulmonary mass. This will require further evaluation by oncologist. Recommend calling our oncologist for follow-up. Return to the ED immediately for any chest pain, shortness of breath, chest pain inspiration, coughing up blood, weakness, dizziness, leg swelling, abdominal pain, nausea, vomitting, constipation, calf pain, or any other concerning symptoms. Prescriptions: No Action amiodarone 200 mg tablet 200 mg PO DAILY Qty: 90 3RF hydrochlorothiazide 25 mg tablet 25 mg PO DAILY 90 Days Qty: 90 2RF Eliquis 5 mg tablet 5 mg PO BID atorvastatin 20 mg tablet 20 mg PO DAILY omeprazole 20 mg capsule,delayed release(DR/EC) 20 mg PO DAILY Lantus Solostar U-100 Insulin 100 unit/mL (3 mL) insulin pen 25 unit subcut BID levothyroxine 75 mcg tablet 75 mcg PO DAILY semaglutide 7 mg tablet 7 mg PO .weekly sertraline 50 mg tablet 50 mg PO DAILY [place] [facility] [place] Group] (Right lung Mass) Interventions: ED Discharge Assessment Last Done: 12/18/22 00:54 Discharge Date/Time: 12/18/22 00:55 Print Language: Polish
--- NOTE | 2022-12-17 19:46 | ECG_ITS ---
Test Reason : WEAKNESS Blood Pressure : / mmHG Vent. Rate : 072 BPM Atrial Rate : 072 BPM P-R Int : 000 ms QRS Dur : 164 ms QT Int : 430 ms P-R-T Axes : 000 -79 108 degrees QTc Int : 470 ms AV dual-paced rhythm with occasional ventricular-paced complexes and with occasional Premature ventricular complexes Abnormal ECG When compared with ECG of 11-NOV-2018 08:45, Electronic ventricular pacemaker has replaced Sinus rhythm Vent. rate has decreased BY 38 BPM Referred By: Damion Monaco Electronically Signed By:ANA GORMAN
[2022-12-17 20:25] VITALS: BP 137/68; PULSE 68; RESP 20; TEMP 36.8; O2SAT 98
[2022-12-17 20:33] LABS: MANUAL DIFF FLAG NO
[2022-12-17 20:39] LABS: Basophils Percent Auto 0.1 % (0-2); Eosinophils Percent Auto 0.5 % (0-4); Hematocrit 33.7 % (42.0-52.0); Hemoglobin 11.2 g/dl (14.0-18.0); Imm Gran Pct Auto 1.2 % (0.0-0.4); Lymphocytes Percent Auto 12.4 % (20-40); Mean Corpuscular HGB Conc 33.2 g/dl (31.0-36.0); Mean Corpuscular Hemoglobin 28.1 pg (27.0-33.0); Mean Corpuscular Volume 84.7 fL (80.0-98.0); Mean Platelet Volume 10.3 fL (9.4-12.4); Monocytes Absolute Auto 0.4 X10*3/uL (0.1-1.2); Monocytes Percent Auto 4.7 % (2-11); Neutrophils Absolute Auto 6.6 x10*3/uL (2.0-8.3); Neutrophils Percent Auto 81.1 % (45-73); Platelet Count 184 X10*3/uL (160-400); Red Blood Count 3.98 X10*6/uL (4.60-5.80); Red Cell Distribution Width 13.7 % (11.0-16.0); White Blood Count 8.1 X10*3/uL (4.8-10.8)
--- NOTE | 2022-12-17 20:49 | PC.NURSE ---
I assume care of the pt at 1900. Pt is resting in bed at this time, complaining of 5/10 pain in his legs bilaterally, which started about a week ago. Pt is A&Ox4, GCS 15, with warm, dry skin. I placed a 20 IV in the right AC and jameel blood. EKG has been obtained and pt has gotten CT scans. Pt is currently waiting for results. Family is at the bedside and pt is on the monitoring and evaluation advisor.
[2022-12-17 20:50] LABS: INTERNATIONAL NORM RATIO 1.4 (0.9-1.1); Prothrombin Time 16.8 SEC (11.1-13.3)
[2022-12-17 20:53] LABS: Alanine Aminotransferase 20 U/L (0-40); Albumin Level 3.5 g/dL (3.5-5.0); Alkaline Phosphatase 86 U/L (39-117); Anion Gap 14 (12-20); Aspartate Amino Transferase 23 U/L (5-37); Blood Urea Nitrogen 21 mg/dL (9-16); COVID-19 Test Negative (Negative); Calcium 10.3 mg/dL (8.4-10.2); Carbon Dioxide 26 mmol/L (22-29); Chloride 99 mmol/L (96-108); Creatinine Clr Calc Pharmacy 50.9; Estimated Glomerular Filt Rate > 60; Glucose Random 243 mg/dL (60-115); IDNOW Serial# BCCEAD1C; Magnesium 1.8 mg/dL (1.6-2.6); Partial Thromboplastin Time 28.6 SEC (26.0-36.4); Sodium 135 mmol/L (135-145); Total Protein 6.7 g/dL (6.5-8.0)
[2022-12-17 21:00] LABS: Troponin-I High Sensitivity 15.4 ng/L (<3.5-35.0)
[2022-12-17] MEDS: 0.9 % Sodium Chloride 1,000 ML 999 ML IV (21:45)
[2022-12-18 00:12] LABS: Troponin-I High Sensitivity 13.4 ng/L (<3.5-35.0)
== END 2022-12-18 00:55 | disposition home or self-care (01) ==
PROVIDERS: Physician Assistant; Emergency Provider Emergency Medicine; PCP Internal Medicine
DX: C34.91 Malignant neoplasm of unspecified part of right bronchus or lung (principal); R53.1 Weakness; R29.6 Repeated falls; Z91.81 History of falling; Z11.52 Encounter for screening for COVID-19; E11.9 Type 2 diabetes mellitus without complications; I10 Essential (primary) hypertension; E78.5 Hyperlipidemia, unspecified; I48.0 Paroxysmal atrial fibrillation; Z79.01 Long term (current) use of anticoagulants; Z79.4 Long term (current) use of insulin; Z79.899 Other long term (current) drug therapy; Z95.0 Presence of cardiac pacemaker
CPT/HCPCS: 36415; 70450; 71250; 72125; 74176; 80053; 82550; 83735; 84484; 85025; 85610; 85730; 87635; 93005; 96360; 96361; 99285